=== PATIENT | female | born 1960 | race Caucasian/White ===

== ENCOUNTER → 2021-05-14 | Outpatient (REF) ==
--- NOTE | 2021-05-14 10:52 | REP ---
INDICATION: PAIN COMPARISON: None. TECHNIQUE: Internal rotation, external rotation, and Y view. FINDINGS: No acute fracture or dislocation. The acromioclavicular and glenohumeral joints are intact and age-appropriate. No periarticular calcifications or degenerative changes are appreciated. Sub acromial space is normal. Surrounding soft tissues are unremarkable. IMPRESSION: Normal age-appropriate right shoulder radiographs. <Electronically signed by Matthew Castellon > 05/14/21 [id number]
--- NOTE | 2021-05-14 10:54 | REP ---
INDICATION: PAIN COMPARISON: None. TECHNIQUE: AP, lateral, coned-down views of the lumbar spine. FINDINGS: Lateral view demonstrates mild compression deformity along the superior endplate of L2 of uncertain chronicity and should be correlated with history of trauma/injury. Remainder of the examination demonstrates mild to moderate multilevel degenerative changes include endplate sclerosis, marginal spurring and facet hypertrophy along with mild disc space narrowing. Aortoiliac stent graft noted. IMPRESSION: 1. Mild compression deformity at L2 of uncertain chronicity warrants correlation. 2. Mild/moderate multilevel degenerative changes. <Electronically signed by Matthew Castellon > 05/14/21 [id number]
== END ==
LOC: M PLAIMG 09:45
PROVIDERS: ATTEND Internal Medicine
DX: M25.511 Pain in right shoulder (principal); M54.59 Other low back pain

== ENCOUNTER 2023-12-10 09:27 | Inpatient (IN) | payer MEDICAID, OTHER ==
[2023-12-10] VITALS (35 sets, daily range): BP systolic 85–165; BP diastolic 51–86; TEMP 95.9–97.9; O2SAT 94–100
[~2023-12-10] VITALS: Ht 160 cm; Wt 47.3 kg
[2023-12-10 10:30] LABS: VENOUS O2 SATURATION 81.1 % (60.0-80.0); VENOUS PARTIAL PRESSURE CO2 39.9 mmHg (38.0-50.0); VENOUS PARTIAL PRESSURE O2 48.7 mmHg (30.0-50.0); VENOUS PH 7.378 UNITS (7.330-7.430); VENOUS STANDARD HCO3 22.5 MMOL/L; VENOUS TOTAL CO2 24.2 MMOL/L (24.0-28.0)
[2023-12-10] MEDS ORDERED: CLOP75TA2 PO (10:31)
[2023-12-10] MEDS ORDERED: MIRT1TAB PO (10:31)
[2023-12-10] MEDS ORDERED: CREO3600 (10:31)
[2023-12-10] MEDS ORDERED: METO1TAB87 PO (10:31)
[2023-12-10] MEDS ORDERED: ELIQ5TAB PO (10:31)
[2023-12-10] MEDS ORDERED: AMLO1TAB24 PO (10:31)
[2023-12-10] MEDS ORDERED: OMEP40CA5 PO (10:31)
[2023-12-10] MEDS ORDERED: MIDO5TA PO (10:31)
[2023-12-10] MEDS ORDERED: PREG50CA3 PO (10:31)
[2023-12-10] MEDS ORDERED: LEVE10003 PO (10:31)
[2023-12-10] MEDS ORDERED: POTA-151 PO (10:31)
[2023-12-10] MEDS ORDERED: HYDR-3719 PO (10:31)
[2023-12-10] MEDS: NS 1,000 ML IV SCH (10:37)
[2023-12-10 10:40] LABS: HEMATOCRIT 28.5 % (36.0-47.0); HEMOGLOBIN 9.1 g/dl (12.0-15.5); MEAN CORPUSCULAR HEMOGLOBIN 24.7 pg (27.0-33.0); MEAN CORPUSCULAR HGB CONC 31.9 g/dl (32.0-36.5); MEAN CORPUSCULAR VOLUME 77.4 fl (80.0-96.0); PLATELET COUNT, AUTOMATED 301 10^3/uL (150-450); RED BLOOD COUNT 3.68 10^6/uL (4.00-5.40); WHITE BLOOD COUNT 18.3 10^3/uL (4.0-10.0)
[2023-12-10 10:54] LABS: ETHYL ALCOHOL (ETHANOL) < 0.003 % (0.000-0.010)
[2023-12-10 10:56] LABS: ALBUMIN 1.9 G/DL (3.2-5.2); ALKALINE PHOSPHATASE 378 U/L (46-116); ALT/SGPT 42 U/L (7.0-40); AST/SGOT 34 U/L (<34); BILIRUBIN,DIRECT 0.8 MG/DL (<0.4); BILIRUBIN,TOTAL 1.4 MG/DL (0.3-1.2); BLOOD UREA NITROGEN 56 MG/DL (9-23); CALCIUM LEVEL 7.7 MG/DL (8.3-10.6); CARBON DIOXIDE LEVEL 23 MMOL/L (20-31); CHLORIDE LEVEL 100 MMOL/L (98-107); CREATININE FOR GFR 4.13 MG/DL (0.55-1.30); GLOMERULAR FILTRATION RATE 11.7 (>45); GLUCOSE, FASTING 87 MG/DL (74-106); POTASSIUM SERUM 3.1 MMOL/L (3.5-5.1); SALICYLATE LEVEL < 3.0 MG/DL (<30); SODIUM LEVEL 135 MMOL/L (136-145); TOTAL PROTEIN 6.2 G/DL (5.7-8.2)
[2023-12-10 10:59] LABS: THYROID STIMULATING HORMONE 2.032 uIU/ML (0.55-4.78)
[2023-12-10] MEDS: ACETAMINOPHEN 500 MG TAB PO ONE (11:00)
[2023-12-10 11:01] LABS: OSMOLALITY SERUM 293 MOSM/KG (280-301)
[2023-12-10 11:31] LABS: ATYPICAL LYMPH 3 % (0-5); LYMPHOCYTES 5 % (16-44); MONOCYTES 1 % (0-5); NEUTROPHILS 84 % (28-66)
[2023-12-10 11:32] LABS: HYPOCHROMASIA 1+; MICROCYTOSIS 2+
[2023-12-10 11:33] LABS: ANISOCYTOSIS 3+; SMUDGE CELLS 2+
[2023-12-10 11:33] LABS: MAGNESIUM LEVEL 2.1 MG/DL (1.8-2.4)
[2023-12-10 11:34] LABS: GIANT PLATELETS 1+
[2023-12-10 11:57] LABS: PHENCYCLIDINE URINE NEGATIVE (NEGATIVE)
[2023-12-10 11:58] LABS: AMPHETAMINES LEVEL URINE NEGATIVE (NEGATIVE); BARBITURATES URINE NEGATIVE (NEGATIVE); BENZODIAZEPINES URINE NEGATIVE (NEGATIVE); COCAINE METABOLITE URINE NEGATIVE (NEGATIVE); METHADONE URINE NEGATIVE (NEGATIVE)
[2023-12-10 11:59] LABS: CANNABINOIDS URINE POSITIVE (NEGATIVE); OPIATES URINE POSITIVE (NEGATIVE)
[2023-12-10 12:03] LABS: PLATELET ESTIMATE NORMAL (NORMAL)
[2023-12-10] MEDS: cefTRIAXone SOD 2 GM in D5W MINI-BAG PLUS 50 ML IV ONE (12:17)
[2023-12-10] MEDS ORDERED: ONDA-282 PO (12:22)
[2023-12-10] MEDS ORDERED: CREO3600 PO (12:22)
[2023-12-10] MEDS ORDERED: LOMO2.5T PO (12:22)
[2023-12-10] MEDS ORDERED: VITA1200 PO (12:22)
[2023-12-10] MEDS ORDERED: HOME MED LIST COMPLETE! XX SCH (12:25)
[2023-12-10] MEDS: NS IV ONE (12:33)
[2023-12-10] MEDS: NOREPINEPHRINE 4MG IN D5 250ML 4 MG in IV 1 EA IV SCH (13:36)
[2023-12-10] MEDS ORDERED: NOREPINEPHRINE 4MG IN D5 250ML 4 MG in IV 1 EA IV SCH (13:55)
[2023-12-10] MEDS ORDERED: VANCOMYCIN HCL 1,000 MG in IV FLUID PLACE HOLDER 1 EA IV SCH (14:00)
[2023-12-10] MEDS ORDERED: VANCOMYCIN INTERMITTENT/PULSE DOSING BY CLINICAL PHARMACIST PER DOSING PROTOCOL XX SCH (14:20)
[2023-12-10] MEDS: HYDROCORTISONE 100MG/2ML VIAL IV ONE (14:55)
[2023-12-10] MEDS: VASOPRESSIN INJ 20 UNITS in NS 499 ML IV SCH (15:00)
[2023-12-10] MEDS: VANCOMYCIN HCL 750 MG, VIAL MATE ADAPTER 1 EACH in D5W 250 ML IV ONE (15:30)
[2023-12-10] MEDS ORDERED: IPRATROPIUM 0.5MG/ALBUTEROL 2.5MG INH SOL UD 3ML (DUONEB) NEB PRN (15:50)
[2023-12-10] MEDS: LR 1,000 ML IV SCH (15:50)
[2023-12-10] MEDS: PREGABALIN 50 MG CAP (LYRICA) PO SCH (16:00)
[2023-12-10] MEDS: MIDODRINE 5 MG TAB PO SCH (16:00)
[2023-12-10] MEDS: CALCIUM GLUCONATE 1,000 MG in D5W MINI-BAG PLUS 100 ML IV ONE ×2 (17:26→18:31)
[2023-12-10] MEDS: CREON-12 CAPSULE PO SCH (17:33)
[2023-12-10] MEDS: CREON-24 CAPSULE PO SCH (17:33)
[2023-12-10] MEDS: PIPERACILLIN/TAZOBACTAM SOD 4.5 GM in D5W MINI-BAG PLUS 50 ML IV SCH (18:58)
[2023-12-10] MEDS: APIXABAN 2.5 MG TAB (ELIQUIS) PO SCH (21:00)
[2023-12-10] MEDS: levETIRAcetam 250MG TABLET (KEPPRA) PO SCH (21:00)
[2023-12-10] MEDS: ACYCLOVIR 500 MG in D5W MINI-BAG PLUS 100 ML IV SCH (22:08)
[2023-12-10] MEDS: HYDROCORTISONE 100MG/2ML VIAL IV SCH (22:08)
[2023-12-11] VITALS (44 sets, daily range): BP systolic 86–126; BP diastolic 52–67; TEMP 95.7–98.2; O2SAT 86–100
[2023-12-11 04:38] LABS: BASO % 0.2 % (0.0-1.0); HEMATOCRIT 24.7 % (36.0-47.0); HEMOGLOBIN 7.9 g/dl (12.0-15.5); LYMPH # 1.6 10^3/uL (1.5-5.0); LYMPH % 8.5 % (24.0-44.0); MEAN CORPUSCULAR HEMOGLOBIN 25.2 pg (27.0-33.0); MEAN CORPUSCULAR VOLUME 78.7 fl (80.0-96.0); MONO # 0.3 10^3/uL (0.0-0.8); MONO % 1.5 % (2.0-8.0); NEUTROPHILS # 16.8 10^3/uL (1.5-8.5); NEUTROPHILS % 88.8 % (36.0-66.0); PLATELET COUNT, AUTOMATED 256 10^3/uL (150-450); RED BLOOD COUNT 3.14 10^6/uL (4.00-5.40); WHITE BLOOD COUNT 18.9 10^3/uL (4.0-10.0)
[2023-12-11 04:52] LABS: VANCOMYCIN RANDOM 9.8 UG/ML
[2023-12-11 04:56] LABS: ALBUMIN 1.4 G/DL (3.2-5.2); ALKALINE PHOSPHATASE 319 U/L (46-116); ALT/SGPT 34 U/L (7.0-40); AST/SGOT 30 U/L (<34); BILIRUBIN,TOTAL 0.5 MG/DL (0.3-1.2); BLOOD UREA NITROGEN 57 MG/DL (9-23); CALCIUM LEVEL 7.2 MG/DL (8.3-10.6); CARBON DIOXIDE LEVEL 22 MMOL/L (20-31); CHLORIDE LEVEL 111 MMOL/L (98-107); CREATININE FOR GFR 3.56 MG/DL (0.55-1.30); GLOMERULAR FILTRATION RATE 13.9 (>45); GLUCOSE, FASTING 138 MG/DL (74-106); POTASSIUM SERUM 3.4 MMOL/L (3.5-5.1); SODIUM LEVEL 143 MMOL/L (136-145)
[2023-12-11] MEDS: KCL 10MEQ/100ML SWI (KRUN) 10 MEQ in IV 1 EA IV SCH (06:40)
[2023-12-11] MEDS: VANCOMYCIN HCL 750 MG, VIAL MATE ADAPTER 1 EACH in D5W 250 ML IV ONE (07:03)
[2023-12-11] MEDS: HEPARIN SOD (PORCINE) 5000UNITS/ML 1ML VIAL/SYRINGE SQ SCH (08:00)
[2023-12-11 09:10] LABS: MAGNESIUM LEVEL 2.3 MG/DL (1.8-2.4)
[2023-12-11] MEDS: CLOPIDOGREL 75 MG TAB PO SCH (09:12)
[2023-12-11] MEDS: levETIRAcetam INJection 500 MG in D5W MINI-BAG PLUS 100 ML IV SCH (09:13)
[2023-12-11] MEDS: MICAFUNGIN SODIUM 100 MG in D5W MINI-BAG PLUS 100 ML IV SCH (09:15)
[2023-12-11] MEDS: LR 1,000 ML IV SCH (09:31)
[2023-12-11] MEDS: APIXABAN 2.5 MG TAB (ELIQUIS) PO SCH (13:33)
[2023-12-11 18:33] LABS: CARCINOEMBRYONIC ANTIGEN < 2.0 NG/ML (<2.5)
[2023-12-11 18:48] LABS: CA19-9 TUMOR MARKER,CARBOHYDRA 11.5 U/ML (<35.0)
[2023-12-11] MEDS: levETIRAcetam 250MG TABLET (KEPPRA) PO SCH (20:18)
[2023-12-11] MEDS: HYDROCORTISONE 100MG/2ML VIAL IV SCH (20:18)
[2023-12-11] MEDS: MIRTAZAPINE 7.5MG PER 1/2 TABLET PO SCH (20:19)
[2023-12-11] MEDS: ACETAMINOPHEN 500 MG TAB PO PRN (20:27)
[2023-12-12] VITALS (20 sets, daily range): BP systolic 111–152; BP diastolic 55–97; TEMP 96.6–98.2; O2SAT 94–100
[2023-12-12 05:34] LABS: BASO % 0.1 % (0.0-1.0); HEMATOCRIT 24.7 % (36.0-47.0); LYMPH # 1.5 10^3/uL (1.5-5.0); LYMPH % 7.5 % (24.0-44.0); MEAN CORPUSCULAR HEMOGLOBIN 24.5 pg (27.0-33.0); MEAN CORPUSCULAR HGB CONC 32.4 g/dl (32.0-36.5); MEAN CORPUSCULAR VOLUME 75.5 fl (80.0-96.0); MONO # 0.5 10^3/uL (0.0-0.8); MONO % 2.6 % (2.0-8.0); NEUTROPHILS # 17.3 10^3/uL (1.5-8.5); NEUTROPHILS % 88.9 % (36.0-66.0); PLATELET COUNT, AUTOMATED 353 10^3/uL (150-450); RED BLOOD COUNT 3.27 10^6/uL (4.00-5.40); WHITE BLOOD COUNT 19.4 10^3/uL (4.0-10.0)
[2023-12-12 05:57] LABS: ALBUMIN 1.4 G/DL (3.2-5.2); BILIRUBIN,TOTAL 0.4 MG/DL (0.3-1.2); CALCIUM LEVEL 7.1 MG/DL (8.3-10.6); CREATININE FOR GFR 2.69 MG/DL (0.55-1.30); GLOMERULAR FILTRATION RATE 19.2 (>45); MAGNESIUM LEVEL 2.3 MG/DL (1.8-2.4); PHOSPHORUS LEVEL 6.1 MG/DL (2.4-5.1); POTASSIUM SERUM 3.2 MMOL/L (3.5-5.1)
[2023-12-12] MEDS: POTASSIUM CHLORIDE 10MEQ SR TABLET PO ONE ×3 (06:33→21:00)
[2023-12-12] MEDS: KCL 10MEQ/100ML SWI (KRUN) 10 MEQ in IV 1 EA IV SCH (06:33)
[2023-12-12] MEDS ORDERED: POTASSIUM CHLORIDE 10MEQ SR TABLET PO SCH (09:00)
[2023-12-12] MEDS ORDERED: KCL 10MEQ/100ML SWI (KRUN) 10 MEQ in IV 1 EA IV SCH (10:00)
[2023-12-12] MEDS: PERCOCET 5MG/325MG TAB PO PRN (12:22)
[2023-12-12 13:46] LABS: ALBUMIN 1.4 G/DL (3.2-5.2); BILIRUBIN,TOTAL 0.4 MG/DL (0.3-1.2); CALCIUM LEVEL 7.2 MG/DL (8.3-10.6); CREATININE FOR GFR 2.62 MG/DL (0.55-1.30); GLOMERULAR FILTRATION RATE 19.7 (>45); POTASSIUM SERUM 3.1 MMOL/L (3.5-5.1); TOTAL PROTEIN 4.9 G/DL (5.7-8.2)
[2023-12-12] MEDS ORDERED: KCL 40MEQ IN D5/NS 1000ML 1,000 ML IV SCH ×2 (14:10→16:00)
[2023-12-12] MEDS: AMINO AC/ELECTROLYTE/DEX/CALC 1,000 ML IV SCH (15:13)
[2023-12-12] MEDS ORDERED: AMINO AC/ELECTROLYTE/DEX/CALC 1,000 ML IV SCH (18:00)
[2023-12-12] MEDS: FAT EMULSION IV 250 ML IV ONE (18:20)
[2023-12-13] VITALS: BP 139/65; TEMP 97; O2SAT 97
[2023-12-13 00:57] LABS: CALCIUM LEVEL 7.1 MG/DL (8.3-10.6); CREATININE FOR GFR 2.82 MG/DL (0.55-1.30); GLOMERULAR FILTRATION RATE 18.1 (>45); POTASSIUM SERUM 3.5 MMOL/L (3.5-5.1)
[2023-12-13 04:00] VITALS: BP 115/57; TEMP 98.4; O2SAT 96
[2023-12-13 05:17] LABS: BASO % 0.3 % (0.0-1.0); EOS # 0.1 10^3/uL (0.0-0.5); EOS % 0.4 % (0.0-3.0); HEMATOCRIT 25.8 % (36.0-47.0); LYMPH # 1.4 10^3/uL (1.5-5.0); LYMPH % 11.7 % (24.0-44.0); MEAN CORPUSCULAR HEMOGLOBIN 24.8 pg (27.0-33.0); MEAN CORPUSCULAR VOLUME 80.1 fl (80.0-96.0); MONO # 0.5 10^3/uL (0.0-0.8); MONO % 4.3 % (2.0-8.0); NEUTROPHILS # 9.6 10^3/uL (1.5-8.5); NEUTROPHILS % 82.1 % (36.0-66.0); PLATELET COUNT, AUTOMATED 290 10^3/uL (150-450); RED BLOOD COUNT 3.22 10^6/uL (4.00-5.40); WHITE BLOOD COUNT 11.7 10^3/uL (4.0-10.0)
[2023-12-13 05:47] LABS: ALBUMIN 1.6 G/DL (3.2-5.2); BILIRUBIN,TOTAL 0.4 MG/DL (0.3-1.2); CALCIUM LEVEL 7.3 MG/DL (8.3-10.6); CREATININE FOR GFR 2.9 MG/DL (0.55-1.30); GLOMERULAR FILTRATION RATE 17.6 (>45); MAGNESIUM LEVEL 2.4 MG/DL (1.8-2.4); POTASSIUM SERUM 3.6 MMOL/L (3.5-5.1); TOTAL PROTEIN 5.1 G/DL (5.7-8.2)
[2023-12-13 08:00] VITALS: BP 132/72; TEMP 99.6; O2SAT 95
[2023-12-13 12:00] VITALS: BP 115/60; TEMP 99; O2SAT 93
[2023-12-13] MEDS: INSULIN LISPRO (NovoLOG) PER UNIT SC SCH (17:50)
[2023-12-13] MEDS: FAT EMULSION IV 250 ML IV ONE (18:20)
[2023-12-13 19:41] VITALS: BP 140/66; TEMP 101.4; O2SAT 94
[2023-12-14] VITALS (11 sets, daily range): BP systolic 115–164; BP diastolic 56–76; TEMP 97.2–98.7; O2SAT 96–99
[2023-12-14 05:57] LABS: BASO # 0.1 10^3/uL (0.0-0.2); BASO % 0.4 % (0.0-1.0); EOS # 0.1 10^3/uL (0.0-0.5); EOS % 0.5 % (0.0-3.0); HEMATOCRIT 23.6 % (36.0-47.0); HEMOGLOBIN 7.4 g/dl (12.0-15.5); LYMPH # 1.4 10^3/uL (1.5-5.0); LYMPH % 10.3 % (24.0-44.0); MEAN CORPUSCULAR HEMOGLOBIN 24.9 pg (27.0-33.0); MEAN CORPUSCULAR HGB CONC 31.4 g/dl (32.0-36.5); MEAN CORPUSCULAR VOLUME 79.5 fl (80.0-96.0); MONO # 0.5 10^3/uL (0.0-0.8); MONO % 3.6 % (2.0-8.0); NEUTROPHILS # 11.6 10^3/uL (1.5-8.5); NEUTROPHILS % 83.8 % (36.0-66.0); PLATELET COUNT, AUTOMATED 359 10^3/uL (150-450); RED BLOOD COUNT 2.97 10^6/uL (4.00-5.40); WHITE BLOOD COUNT 13.9 10^3/uL (4.0-10.0)
[2023-12-14 06:28] LABS: ALBUMIN 1.6 G/DL (3.2-5.2); BILIRUBIN,TOTAL 0.5 MG/DL (0.3-1.2); CALCIUM LEVEL 7.5 MG/DL (8.3-10.6); CREATININE FOR GFR 2.75 MG/DL (0.55-1.30); GLOMERULAR FILTRATION RATE 18.7 (>45); MAGNESIUM LEVEL 2.2 MG/DL (1.8-2.4); POTASSIUM SERUM 3.5 MMOL/L (3.5-5.1); TOTAL PROTEIN 5.1 G/DL (5.7-8.2)
[2023-12-14 11:08] LABS: ABG BASE EXCESS -4.1 (-2.0-2.0); ABG HCO3 18.8 MMOL/L (22.0-26.0); ABG O2 SATURATION 95.7 % (95.0-99.0); ABG PARTIAL PRESSURE CO2 26.3 mmHg (35.0-45.0); ABG PARTIAL PRESSURE O2 84.1 mmHg (75.0-100.0); ABG TOTAL CO2 19.6 MMOL/L (23.0-31.0); ABG pH (ARTERIAL) 7.472 UNITS (7.350-7.450)
[2023-12-14 11:24] LABS: FERRITIN 63.9 NG/ML (7.3-270.7)
[2023-12-14 11:29] LABS: PERCENT SATURATION 3.5 % (13.2-45.0)
[2023-12-14 11:32] LABS: FOLATE 18.45 NG/ML (>5.4)
[2023-12-14] MEDS: KCL 10MEQ/100ML SWI (KRUN) 10 MEQ in IV 1 EA IV SCH (11:36)
[2023-12-14 12:07] LABS: CA19-9 TUMOR MARKER,CARBOHYDRA 10.9 U/ML (<35.0)
[2023-12-14] MEDS ORDERED: cefTRIAXone SOD 2GM VIAL IM SCH (12:45)
[2023-12-14] MEDS: SODIUM BICARBONATE 325 MG TAB PO SCH (15:14)
[2023-12-14] MEDS: POTASSIUM CHLORIDE 10MEQ SR TABLET PO SCH (15:15)
[2023-12-14] MEDS: cefTRIAXone SOD 2 GM in D5W MINI-BAG PLUS 50 ML IV SCH (15:15)
[2023-12-14] MEDS ORDERED: PROHANCE 279.3MG/ML 15ML VIAL As Ordered ONE (17:29)
[2023-12-14] MEDS: INSULIN LISPRO (NovoLOG) PER UNIT SC SCH (18:00)
[2023-12-14] MEDS: FAT EMULSION IV 250 ML IV ONE (18:39)
[2023-12-15] VITALS (7 sets, daily range): BP systolic 124–153; BP diastolic 67–80; TEMP 97.8–101.7; O2SAT 95–98
[2023-12-15 06:03] LABS: BASO # 0.1 10^3/uL (0.0-0.2); BASO % 0.4 % (0.0-1.0); EOS # 0.1 10^3/uL (0.0-0.5); EOS % 0.7 % (0.0-3.0); HEMATOCRIT 28.5 % (36.0-47.0); HEMOGLOBIN 9.1 g/dl (12.0-15.5); LYMPH # 1.4 10^3/uL (1.5-5.0); LYMPH % 10.6 % (24.0-44.0); MEAN CORPUSCULAR HEMOGLOBIN 25.6 pg (27.0-33.0); MEAN CORPUSCULAR HGB CONC 31.9 g/dl (32.0-36.5); MEAN CORPUSCULAR VOLUME 80.1 fl (80.0-96.0); MONO # 0.5 10^3/uL (0.0-0.8); MONO % 4.1 % (2.0-8.0); NEUTROPHILS # 10.6 10^3/uL (1.5-8.5); NEUTROPHILS % 83.3 % (36.0-66.0); PLATELET COUNT, AUTOMATED 395 10^3/uL (150-450); RED BLOOD COUNT 3.56 10^6/uL (4.00-5.40); WHITE BLOOD COUNT 12.8 10^3/uL (4.0-10.0)
[2023-12-15 06:41] LABS: ALBUMIN 1.8 G/DL (3.2-5.2); BILIRUBIN,TOTAL 0.5 MG/DL (0.3-1.2); CALCIUM LEVEL 7.7 MG/DL (8.3-10.6); CREATININE FOR GFR 2.32 MG/DL (0.55-1.30); GLOMERULAR FILTRATION RATE 22.7 (>45); POTASSIUM SERUM 3.5 MMOL/L (3.5-5.1); TOTAL PROTEIN 5.5 G/DL (5.7-8.2)
[2023-12-15 11:49] LABS: PREALBUMIN 9.3 MG/DL (10.0-40.0)
[2023-12-15 11:50] LABS: PHOSPHORUS LEVEL 5.5 MG/DL (2.4-5.1)
[2023-12-15] MEDS: FAT EMULSION IV 250 ML IV ONE (18:41)
[2023-12-16 03:27] VITALS: BP 124/63; TEMP 97.2; O2SAT 97
[2023-12-16 08:04] VITALS: BP 138/77; TEMP 96.8; O2SAT 98
[2023-12-16 08:22] LABS: BASO # 0.1 10^3/uL (0.0-0.2); BASO % 0.5 % (0.0-1.0); EOS # 0.2 10^3/uL (0.0-0.5); HEMATOCRIT 32.9 % (36.0-47.0); HEMOGLOBIN 10.2 g/dl (12.0-15.5); LYMPH # 2.1 10^3/uL (1.5-5.0); LYMPH % 13.5 % (24.0-44.0); MEAN CORPUSCULAR HEMOGLOBIN 25.7 pg (27.0-33.0); MEAN CORPUSCULAR VOLUME 82.9 fl (80.0-96.0); MONO # 0.5 10^3/uL (0.0-0.8); MONO % 3.5 % (2.0-8.0); NEUTROPHILS # 12.2 10^3/uL (1.5-8.5); NEUTROPHILS % 80.6 % (36.0-66.0); PLATELET COUNT, AUTOMATED 451 10^3/uL (150-450); RED BLOOD COUNT 3.97 10^6/uL (4.00-5.40); WHITE BLOOD COUNT 15.2 10^3/uL (4.0-10.0)
[2023-12-16 08:38] LABS: C REACTIVE PROTEIN QUANTITATIV 12.3 MG/DL (<1.0); ERYTHROCYTE SEDIMENTATION RATE 103 mm/hr (0-30)
[2023-12-16 08:39] LABS: CALCIUM LEVEL 7.9 MG/DL (8.3-10.6); CREATININE FOR GFR 1.81 MG/DL (0.55-1.30); GLOMERULAR FILTRATION RATE 30.3 (>45); POTASSIUM SERUM 4.1 MMOL/L (3.5-5.1)
[2023-12-16 08:46] LABS: PROCALCITONIN 20.27 ng/ml
[2023-12-16 12:08] VITALS: BP 145/78
[2023-12-16 12:43] VITALS: TEMP 98.1; O2SAT 98
[2023-12-16 16:15] VITALS: BP 120/74; TEMP 97; O2SAT 96
[2023-12-16] MEDS: FAT EMULSION IV 250 ML IV ONE (17:08)
[2023-12-16] MEDS: INSULIN LISPRO (NovoLOG) PER UNIT SC SCH (17:18)
[2023-12-16 19:59] VITALS: BP 133/78; TEMP 97.4; O2SAT 98
[2023-12-17] VITALS (7 sets, daily range): BP systolic 110–140; BP diastolic 71–83; TEMP 97.4–98.5; O2SAT 95–98
[2023-12-17 06:26] LABS: BASO # 0.1 10^3/uL (0.0-0.2); BASO % 0.7 % (0.0-1.0); EOS # 0.3 10^3/uL (0.0-0.5); EOS % 1.8 % (0.0-3.0); HEMOGLOBIN 9.6 g/dl (12.0-15.5); LYMPH # 1.7 10^3/uL (1.5-5.0); LYMPH % 11.4 % (24.0-44.0); MEAN CORPUSCULAR HEMOGLOBIN 25.3 pg (27.0-33.0); MEAN CORPUSCULAR VOLUME 81.8 fl (80.0-96.0); MONO # 0.9 10^3/uL (0.0-0.8); NEUTROPHILS # 11.9 10^3/uL (1.5-8.5); PLATELET COUNT, AUTOMATED 497 10^3/uL (150-450); RED BLOOD COUNT 3.79 10^6/uL (4.00-5.40); WHITE BLOOD COUNT 15.1 10^3/uL (4.0-10.0)
[2023-12-17 07:00] LABS: CALCIUM LEVEL 8.4 MG/DL (8.3-10.6); CREATININE FOR GFR 1.58 MG/DL (0.55-1.30); GLOMERULAR FILTRATION RATE 35.4 (>45); POTASSIUM SERUM 4.1 MMOL/L (3.5-5.1)
[2023-12-17] MEDS: FAT EMULSION IV 250 ML IV ONE (17:27)
[2023-12-17] MEDS: INSULIN LISPRO (NovoLOG) PER UNIT SC SCH (17:40)
[2023-12-18 04:05] VITALS: BP 104/67; TEMP 96.4; O2SAT 93
[2023-12-18 06:33] LABS: BASO # 0.1 10^3/uL (0.0-0.2); BASO % 0.8 % (0.0-1.0); EOS # 0.3 10^3/uL (0.0-0.5); HEMATOCRIT 33.3 % (36.0-47.0); LYMPH # 1.9 10^3/uL (1.5-5.0); LYMPH % 14.6 % (24.0-44.0); MEAN CORPUSCULAR HEMOGLOBIN 25.4 pg (27.0-33.0); MEAN CORPUSCULAR VOLUME 84.5 fl (80.0-96.0); MONO # 0.9 10^3/uL (0.0-0.8); NEUTROPHILS # 9.7 10^3/uL (1.5-8.5); NEUTROPHILS % 74.7 % (36.0-66.0); PLATELET COUNT, AUTOMATED 521 10^3/uL (150-450); RED BLOOD COUNT 3.94 10^6/uL (4.00-5.40)
[2023-12-18 06:59] LABS: CALCIUM LEVEL 8.4 MG/DL (8.3-10.6); CREATININE FOR GFR 1.52 MG/DL (0.55-1.30); POTASSIUM SERUM 4.7 MMOL/L (3.5-5.1)
[2023-12-18 08:02] VITALS: BP 92/54; TEMP 98; O2SAT 96
[2023-12-18 12:02] VITALS: BP 140/69; TEMP 97.4; O2SAT 97
[2023-12-18 16:13] VITALS: BP 126/80; TEMP 97.1; O2SAT 99
[2023-12-18] MEDS: FAT EMULSION IV 250 ML IV ONE (18:36)
[2023-12-18 19:48] VITALS: BP 124/71; TEMP 97.5; O2SAT 100
[2023-12-18 23:34] VITALS: BP 113/66; TEMP 98.2; O2SAT 97
[2023-12-19 03:44] VITALS: BP 117/66; TEMP 97.9; O2SAT 98
[2023-12-19 06:58] LABS: BASO # 0.2 10^3/uL (0.0-0.2); BASO % 1.1 % (0.0-1.0); EOS # 0.2 10^3/uL (0.0-0.5); EOS % 1.8 % (0.0-3.0); HEMATOCRIT 32.1 % (36.0-47.0); HEMOGLOBIN 9.8 g/dl (12.0-15.5); LYMPH # 1.9 10^3/uL (1.5-5.0); LYMPH % 14.1 % (24.0-44.0); MEAN CORPUSCULAR HEMOGLOBIN 25.6 pg (27.0-33.0); MEAN CORPUSCULAR HGB CONC 30.5 g/dl (32.0-36.5); MEAN CORPUSCULAR VOLUME 83.8 fl (80.0-96.0); MONO # 0.9 10^3/uL (0.0-0.8); MONO % 6.6 % (2.0-8.0); NEUTROPHILS # 10.1 10^3/uL (1.5-8.5); NEUTROPHILS % 75.5 % (36.0-66.0); PLATELET COUNT, AUTOMATED 527 10^3/uL (150-450); RED BLOOD COUNT 3.83 10^6/uL (4.00-5.40); WHITE BLOOD COUNT 13.4 10^3/uL (4.0-10.0)
[2023-12-19 07:22] LABS: CALCIUM LEVEL 8.7 MG/DL (8.3-10.6); CREATININE FOR GFR 1.38 MG/DL (0.55-1.30); GLOMERULAR FILTRATION RATE 41.4 (>45)
[2023-12-19 08:00] VITALS: BP 116/76; TEMP 97.4; O2SAT 98
[2023-12-19 12:00] VITALS: BP 137/78; TEMP 98.3; O2SAT 100
[2023-12-19 12:36] LABS: ABG BASE EXCESS -12.5 (-2.0-2.0); ABG HCO3 11.7 MMOL/L (22.0-26.0); ABG O2 SATURATION 97.7 % (95.0-99.0); ABG PARTIAL PRESSURE CO2 22.6 mmHg (35.0-45.0); ABG PARTIAL PRESSURE O2 103.4 mmHg (75.0-100.0); ABG STANDARD HCO3 14.6 MMOL/L. (22.0-26.0); ABG TOTAL CO2 12.4 MMOL/L (23.0-31.0); ABG pH (ARTERIAL) 7.331 UNITS (7.350-7.450)
[2023-12-19 16:00] VITALS: BP 132/68; TEMP 98.8; O2SAT 96
[2023-12-19] MEDS: FAT EMULSION IV 250 ML IV ONE (17:44)
[2023-12-19 19:54] VITALS: BP 123/72; TEMP 97.5; O2SAT 96
[2023-12-19] MEDS: APIXABAN 5 MG TAB (ELIQUIS) PO SCH (20:30)
[2023-12-19] MEDS ORDERED: NORCO, ANEXSIA 5/325MG TABLET (HYDROcodone/ACETAMINOPHEN) PO PRN ×2 (22:25)
[2023-12-20 00:08] VITALS: BP 144/75; TEMP 99; O2SAT 97
[2023-12-20 03:48] VITALS: BP 125/82; TEMP 98.3; O2SAT 96
[2023-12-20 05:52] LABS: BASO # 0.2 10^3/uL (0.0-0.2); BASO % 1.5 % (0.0-1.0); EOS # 0.2 10^3/uL (0.0-0.5); EOS % 1.4 % (0.0-3.0); HEMATOCRIT 33.5 % (36.0-47.0); HEMOGLOBIN 10.3 g/dl (12.0-15.5); MEAN CORPUSCULAR HEMOGLOBIN 25.5 pg (27.0-33.0); MEAN CORPUSCULAR HGB CONC 30.7 g/dl (32.0-36.5); MEAN CORPUSCULAR VOLUME 82.9 fl (80.0-96.0); MONO # 0.8 10^3/uL (0.0-0.8); MONO % 6.6 % (2.0-8.0); NEUTROPHILS # 9.2 10^3/uL (1.5-8.5); NEUTROPHILS % 73.7 % (36.0-66.0); PLATELET COUNT, AUTOMATED 582 10^3/uL (150-450); RED BLOOD COUNT 4.04 10^6/uL (4.00-5.40); WHITE BLOOD COUNT 12.5 10^3/uL (4.0-10.0)
[2023-12-20 06:22] LABS: BLOOD UREA NITROGEN 27 MG/DL (9-23); CALCIUM LEVEL 9.2 MG/DL (8.3-10.6); CARBON DIOXIDE LEVEL < 10.0 MMOL/L (20-31); CHLORIDE LEVEL 116 MMOL/L (98-107); CREATININE FOR GFR 1.38 MG/DL (0.55-1.30); GLOMERULAR FILTRATION RATE 41.4 (>45); GLUCOSE, FASTING 99 MG/DL (74-106); POTASSIUM SERUM 5.5 MMOL/L (3.5-5.1); SODIUM LEVEL 138 MMOL/L (136-145)
[2023-12-20 08:41] VITALS: BP 119/81; TEMP 98.3; O2SAT 99
[2023-12-20] MEDS ORDERED: ACET-683 PO (09:27)
[2023-12-20] MEDS ORDERED: HYDR-3715 PO (09:27)
[2023-12-20] MEDS ORDERED: KEPP250T5 PO (09:27)
[2023-12-20] MEDS ORDERED: CLOP75TA2 PO (09:27)
[2023-12-20] MEDS: CALCIUM GLUCONATE 1,000 MG in D5W MINI-BAG PLUS 100 ML IV ONE (09:35)
[2023-12-20] MEDS ORDERED: PATIROMER SORBITEX CALCIUM 8.4 GM POWDER PACKET (VELTASSA) PO ONE (11:00)
[2023-12-20] MEDS ORDERED: SODIUM BICARBONATE 150 MEQ in STERILE WATER LITER BAG 1,000 ML IV SCH (14:00)
[2023-12-20] MEDS ORDERED: SODIUM BICARBONATE 325 MG TAB PO SCH (16:00)
[2023-12-20] MEDS ORDERED: INSULIN LISPRO (NovoLOG) PER UNIT SC SCH (18:00)
[2023-12-20] MEDS ORDERED: FAT EMULSION IV 250 ML IV ONE (18:00)
== END 2023-12-20 11:27 | disposition short-term general hospital (02) | DRG 721 ==
LOC: M ED 09:27 → M ED INP 13:53 → M ICU 15:23 → M PCU 12-13 15:31
PROVIDERS: ADMIT Internal Medicine Pulmonary Disease; ATTEND Internal Medicine Pulmonary Disease
PROC: 30233N1 Transfusion of Nonautologous Red Blood Cells into Peripheral Vein, Percutaneous Approach (ICD-10-PCS; principal; 2023-12-14)
DX: T80.211A Bloodstream infection due to central venous catheter, initial encounter (principal); E43 Unspecified severe protein-calorie malnutrition; G93.41 Metabolic encephalopathy; R65.21 Severe sepsis with septic shock; J18.9 Pneumonia, unspecified organism; K91.2 Postsurgical malabsorption, not elsewhere classified; N17.9 Acute kidney failure, unspecified; A41.50 Gram-negative sepsis, unspecified; E87.0 Hyperosmolality and hypernatremia; E87.1 Hypo-osmolality and hyponatremia; E87.20 Acidosis, unspecified; R17 Unspecified jaundice; Z87.891 Personal history of nicotine dependence; F12.90 Cannabis use, unspecified, uncomplicated; E87.6 Hypokalemia; K31.89 Other diseases of stomach and duodenum; Z79.899 Other long term (current) drug therapy; Z88.2 Allergy status to sulfonamides; N39.0 Urinary tract infection, site not specified; G40.909 Epilepsy, unspecified, not intractable, without status epilepticus; I95.89 Other hypotension; I25.10 Atherosclerotic heart disease of native coronary artery without angina pectoris; K90.829 Short bowel syndrome, unspecified; Z68.21 Body mass index [BMI] 21.0-21.9, adult; K86.9 Disease of pancreas, unspecified; I27.20 Pulmonary hypertension, unspecified; I08.1 Rheumatic disorders of both mitral and tricuspid valves; D64.9 Anemia, unspecified; Y84.8 Other medical procedures as the cause of abnormal reaction of the patient, or of later complication, without mention of misadventure at the time of the procedure

== ENCOUNTER 2023-12-24 14:29 | Inpatient (IN) | payer OTHER ==
[~2023-12-24] VITALS: Ht 160 cm; Wt 49.1 kg
[~2023-12-24 14:29] MED LIST: ACET-683 PO; AMLO1TAB24 PO; CLOP75TA2 PO; CREO3600; CREO3600 PO; ELIQ5TAB PO; HYDR-3715 PO; HYDR-3719 PO; KEPP250T5 PO; LEVE10003 PO; LOMO2.5T PO; METO1TAB87 PO; MIDO5TA PO; MIRT1TAB PO; OMEP40CA5 PO; ONDA4TAB6 PO; POTA-151 PO; PREG50CA3 PO; VITA1200 PO
[2023-12-24 20:49] VITALS: BP 110/57; TEMP 100.4; O2SAT 98
[2023-12-24] MEDS ORDERED: METAMUCIL (PSYLLIUM) PACKET PO PRN (20:55)
[2023-12-24 23:17] VITALS: BP 105/67; TEMP 97.7; O2SAT 95
[2023-12-24] MEDS: cefTRIAXone SOD 2 GM in D5W MINI-BAG PLUS 50 ML IV SCH (23:33)
[2023-12-24] MEDS ORDERED: CREO24CA PO (23:47)
[2023-12-24] MEDS ORDERED: METO25TA4 PO (23:47)
[2023-12-24] MEDS ORDERED: VITA100093 PO (23:47)
[2023-12-24] MEDS ORDERED: MAGN400T2 PO (23:47)
[2023-12-24] MEDS ORDERED: DEBR6.5S4 AU (23:47)
[2023-12-24] MEDS ORDERED: KEPP1TAB2 PO (23:47)
[2023-12-24] MEDS: oxyCODONE 5MG TAB PO PRN (23:48)
[2023-12-24] MEDS ORDERED: SODI650T PO (23:51)
[2023-12-24] MEDS ORDERED: OXYC10TA12 PO (23:51)
[2023-12-24] MEDS ORDERED: PREG50CA PO (23:51)
[2023-12-24] MEDS ORDERED: HOME MED LIST COMPLETE! XX SCH (23:55)
[2023-12-25] MEDS ORDERED: PILL CUTTER 1 EACH XX PRN (00:50)
[2023-12-25] MEDS: MICAFUNGIN SODIUM 100 MG in D5W MINI-BAG PLUS 100 ML IV SCH (00:51)
[2023-12-25] MEDS: METOPROLOL TART 12.5 MG PER 1/2 TAB PO SCH (01:03)
[2023-12-25] MEDS: APIXABAN 5 MG TAB (ELIQUIS) PO SCH (01:04)
[2023-12-25] MEDS: MAGNESIUM OXIDE 400MG TAB (MAG-OX) PO SCH (01:04)
[2023-12-25] MEDS: levETIRAcetam 250MG TABLET (KEPPRA) PO SCH (01:04)
[2023-12-25] MEDS: OMEPRAZOLE 20MG CAP PO SCH (01:04)
[2023-12-25] MEDS: PREGABALIN 50 MG CAP (LYRICA) PO SCH (01:04)
[2023-12-25] MEDS: MIRTAZAPINE 7.5MG PER 1/2 TABLET PO SCH (01:28)
[2023-12-25] MEDS: SODIUM BICARBONATE 325 MG TAB PO SCH (01:28)
[2023-12-25 03:29] VITALS: BP 100/62; TEMP 97.6; O2SAT 94
[2023-12-25 05:51] LABS: HEMATOCRIT 27.1 % (36.0-47.0); HEMOGLOBIN 8.2 g/dl (12.0-15.5); MEAN CORPUSCULAR HEMOGLOBIN 25.7 pg (27.0-33.0); MEAN CORPUSCULAR HGB CONC 30.3 g/dl (32.0-36.5); PLATELET COUNT, AUTOMATED 364 10^3/uL (150-450); RED BLOOD COUNT 3.19 10^6/uL (4.00-5.40); WHITE BLOOD COUNT 8.3 10^3/uL (4.0-10.0)
[2023-12-25 06:24] LABS: ALBUMIN 2.1 G/DL (3.2-5.2); BILIRUBIN,TOTAL 0.3 MG/DL (0.3-1.2); CALCIUM LEVEL 8.6 MG/DL (8.3-10.6); CREATININE FOR GFR 1.29 MG/DL (0.55-1.30); GLOMERULAR FILTRATION RATE 44.7 (>45); MAGNESIUM LEVEL 1.2 MG/DL (1.8-2.4); POTASSIUM SERUM 3.7 MMOL/L (3.5-5.1); TOTAL PROTEIN 6.1 G/DL (5.7-8.2)
[2023-12-25] MEDS: MAG SULF 1GM/100ML (MAG RUN) 1 GM in IV 1 EA IV SCH (07:02)
[2023-12-25 07:34] VITALS: BP 110/58; TEMP 96.8; O2SAT 94
[2023-12-25] MEDS: CREON-24 CAPSULE PO SCH (08:27)
[2023-12-25] MEDS: LACTOBACILLUS ACIDOPHILUS CAP (BACID) PO SCH (08:27)
[2023-12-25] MEDS: VITAMIN D 1,000 INTERNATIONAL UNITS TABLET PO SCH (08:27)
[2023-12-25] MEDS: CLOPIDOGREL 75 MG TAB PO SCH (08:28)
[2023-12-25] MEDS: CARBAMIDE PEROXIDE 6.5% OTIC SOLN 15ML AU SCH (08:28)
[2023-12-25 09:26] LABS: C REACTIVE PROTEIN QUANTITATIV 5.5 MG/DL (<1.0)
[2023-12-25 09:27] LABS: PHOSPHORUS LEVEL 4.2 MG/DL (2.4-5.1)
[2023-12-25 12:00] VITALS: BP 109/59; TEMP 97; O2SAT 96
[2023-12-25] MEDS: LIDOCAINE 5% (LIDODERM) PATCH TD SCH (15:19)
[2023-12-25 16:47] VITALS: BP 108/69; TEMP 97.7; O2SAT 98
[2023-12-25] MEDS: MULTIVITAMIN -ADULT INJECTION 10 ML, ZINC/COPPER/MANGANESE/SELENIUM 1 ML in AMINO AC/EL... IV SCH (17:26)
[2023-12-25] MEDS: FAT EMULSION IV 250 ML IV ONE (17:26)
[2023-12-25 20:25] VITALS: BP 104/64; TEMP 98.6; O2SAT 96
[2023-12-26 05:52] LABS: BASO # 0.2 10^3/uL (0.0-0.2); BASO % 2.3 % (0.0-1.0); EOS # 0.3 10^3/uL (0.0-0.5); EOS % 3.6 % (0.0-3.0); HEMATOCRIT 27.3 % (36.0-47.0); HEMOGLOBIN 8.2 g/dl (12.0-15.5); LYMPH # 1.9 10^3/uL (1.5-5.0); LYMPH % 22.6 % (24.0-44.0); MEAN CORPUSCULAR HEMOGLOBIN 25.7 pg (27.0-33.0); MEAN CORPUSCULAR VOLUME 85.6 fl (80.0-96.0); MONO # 0.5 10^3/uL (0.0-0.8); MONO % 6.4 % (2.0-8.0); NEUTROPHILS # 5.4 10^3/uL (1.5-8.5); NEUTROPHILS % 64.9 % (36.0-66.0); PLATELET COUNT, AUTOMATED 340 10^3/uL (150-450); RED BLOOD COUNT 3.19 10^6/uL (4.00-5.40); WHITE BLOOD COUNT 8.4 10^3/uL (4.0-10.0)
[2023-12-26] MEDS: SODIUM CHLORIDE 0.9% INJ 10 ML SYR IV SCH (05:53)
[2023-12-26 05:54] VITALS: BP 95/62; TEMP 97.7; O2SAT 97
[2023-12-26 06:26] LABS: ALBUMIN 2.1 G/DL (3.2-5.2); ALKALINE PHOSPHATASE 198 U/L (46-116); ALT/SGPT 45 U/L (7.0-40); AST/SGOT 17 U/L (<34); BILIRUBIN,TOTAL < 0.2 MG/DL (0.3-1.2); BLOOD UREA NITROGEN 15 MG/DL (9-23); CALCIUM LEVEL 8.6 MG/DL (8.3-10.6); CARBON DIOXIDE LEVEL 17 MMOL/L (20-31); CHLORIDE LEVEL 106 MMOL/L (98-107); CREATININE FOR GFR 1.29 MG/DL (0.55-1.30); GLOMERULAR FILTRATION RATE 44.7 (>45); GLUCOSE, FASTING 134 MG/DL (74-106); MAGNESIUM LEVEL 1.9 MG/DL (1.8-2.4); PHOSPHORUS LEVEL 5.1 MG/DL (2.4-5.1); POTASSIUM SERUM 4.3 MMOL/L (3.5-5.1); SODIUM LEVEL 134 MMOL/L (136-145); TOTAL PROTEIN 6.3 G/DL (5.7-8.2)
[2023-12-26] MEDS: SODIUM BICARBONATE 325 MG TAB PO SCH (08:04)
[2023-12-26 13:50] VITALS: BP 89/55; TEMP 97.8; O2SAT 98
[2023-12-26 16:37] VITALS: BP 110/68
[2023-12-26] MEDS: FAT EMULSION IV 250 ML IV ONE (17:27)
[2023-12-26] MEDS: AMINO AC/ELECTROLYTE/DEX/CALC 1,000 ML IV SCH (17:27)
[2023-12-26 20:44] VITALS: BP 103/64; TEMP 97.3; O2SAT 98
[2023-12-27] MEDS: SODIUM CHLORIDE 0.9% INJ 10 ML SYR IV PRN (02:25)
[2023-12-27 06:00] VITALS: BP 110/69; TEMP 97.5; O2SAT 96
[2023-12-27 11:35] LABS: BASO # 0.2 10^3/uL (0.0-0.2); BASO % 2.5 % (0.0-1.0); EOS # 0.2 10^3/uL (0.0-0.5); EOS % 3.2 % (0.0-3.0); HEMATOCRIT 28.2 % (36.0-47.0); HEMOGLOBIN 8.5 g/dl (12.0-15.5); LYMPH # 1.4 10^3/uL (1.5-5.0); LYMPH % 18.8 % (24.0-44.0); MEAN CORPUSCULAR HEMOGLOBIN 25.4 pg (27.0-33.0); MEAN CORPUSCULAR HGB CONC 30.1 g/dl (32.0-36.5); MEAN CORPUSCULAR VOLUME 84.2 fl (80.0-96.0); MONO # 0.4 10^3/uL (0.0-0.8); MONO % 5.7 % (2.0-8.0); NEUTROPHILS % 69.5 % (36.0-66.0); PLATELET COUNT, AUTOMATED 370 10^3/uL (150-450); RED BLOOD COUNT 3.35 10^6/uL (4.00-5.40); WHITE BLOOD COUNT 7.2 10^3/uL (4.0-10.0)
[2023-12-27 11:39] LABS: C REACTIVE PROTEIN QUANTITATIV 3.5 MG/DL (<1.0)
[2023-12-27 11:41] LABS: ALBUMIN 2.2 G/DL (3.2-5.2); BILIRUBIN,TOTAL 0.2 MG/DL (0.3-1.2); CALCIUM LEVEL 8.4 MG/DL (8.3-10.6); CREATININE FOR GFR 1.32 MG/DL (0.55-1.30); GLOMERULAR FILTRATION RATE 43.6 (>45); MAGNESIUM LEVEL 1.6 MG/DL (1.8-2.4); PHOSPHORUS LEVEL 4.2 MG/DL (2.4-5.1); TOTAL PROTEIN 6.5 G/DL (5.7-8.2)
[2023-12-27 14:00] VITALS: BP 105/68; TEMP 97.5; O2SAT 98
[2023-12-27 20:34] VITALS: BP 106/66; TEMP 97.9; O2SAT 98
[2023-12-27] MEDS: FAT EMULSION IV 250 ML IV ONE (20:36)
[2023-12-27] MEDS: AMINO AC/ELECTROLYTE/DEX/CALC 2,000 ML IV SCH (20:36)
[2023-12-28 07:16] LABS: HEMATOCRIT 27.3 % (36.0-47.0); HEMOGLOBIN 8.3 g/dl (12.0-15.5); MEAN CORPUSCULAR HEMOGLOBIN 25.4 pg (27.0-33.0); MEAN CORPUSCULAR HGB CONC 30.4 g/dl (32.0-36.5); MEAN CORPUSCULAR VOLUME 83.5 fl (80.0-96.0); PLATELET COUNT, AUTOMATED 358 10^3/uL (150-450); RED BLOOD COUNT 3.27 10^6/uL (4.00-5.40)
[2023-12-28 07:49] LABS: ALBUMIN 2.2 G/DL (3.2-5.2); ALKALINE PHOSPHATASE 210 U/L (46-116); ALT/SGPT 38 U/L (7.0-40); AST/SGOT 26 U/L (<34); BILIRUBIN,TOTAL < 0.2 MG/DL (0.3-1.2); BLOOD UREA NITROGEN 22 MG/DL (9-23); CALCIUM LEVEL 8.6 MG/DL (8.3-10.6); CARBON DIOXIDE LEVEL 18 MMOL/L (20-31); CHLORIDE LEVEL 108 MMOL/L (98-107); CREATININE FOR GFR 1.33 MG/DL (0.55-1.30); GLOMERULAR FILTRATION RATE 43.2 (>45); GLUCOSE, FASTING 96 MG/DL (74-106); MAGNESIUM LEVEL 1.6 MG/DL (1.8-2.4); PHOSPHORUS LEVEL 4.8 MG/DL (2.4-5.1); POTASSIUM SERUM 3.9 MMOL/L (3.5-5.1); SODIUM LEVEL 137 MMOL/L (136-145); TOTAL PROTEIN 6.4 G/DL (5.7-8.2)
[2023-12-28 08:21] LABS: ATYPICAL LYMPH 3 % (0-5); BASOPHILS 5 % (0-1); EOSINOPHILS 3 % (0-3); LYMPHOCYTES 19 % (16-44); MONOCYTES 7 % (0-5); NEUTROPHILS 62 % (28-66)
[2023-12-28 08:22] LABS: ANISOCYTOSIS 2+
[2023-12-28 08:23] LABS: HYPOCHROMASIA 2+
[2023-12-28 08:25] LABS: PLATELET ESTIMATE NORMAL (NORMAL)
[2023-12-28] MEDS: MAG SULF 1GM/100ML (MAG RUN) 1 GM in IV 1 EA IV SCH (10:48)
[2023-12-28 14:00] VITALS: BP 122/66; TEMP 97.5; O2SAT 98
[2023-12-28] MEDS: AMINO AC/ELECTROLYTE/DEX/CALC 2,000 ML IV SCH (17:40)
[2023-12-28] MEDS: FAT EMULSION IV 250 ML IV ONE (17:40)
[2023-12-28 19:38] VITALS: BP 123/69; TEMP 98.1; O2SAT 96
[2023-12-29 05:51] VITALS: BP 96/66; TEMP 98.1; O2SAT 98
[2023-12-29 06:26] LABS: BASO # 0.1 10^3/uL (0.0-0.2); BASO % 1.7 % (0.0-1.0); EOS # 0.3 10^3/uL (0.0-0.5); EOS % 5.2 % (0.0-3.0); HEMATOCRIT 25.8 % (36.0-47.0); LYMPH # 1.3 10^3/uL (1.5-5.0); LYMPH % 22.3 % (24.0-44.0); MEAN CORPUSCULAR HEMOGLOBIN 25.9 pg (27.0-33.0); MEAN CORPUSCULAR VOLUME 83.5 fl (80.0-96.0); MONO # 0.5 10^3/uL (0.0-0.8); MONO % 8.9 % (2.0-8.0); NEUTROPHILS # 3.6 10^3/uL (1.5-8.5); NEUTROPHILS % 61.4 % (36.0-66.0); PLATELET COUNT, AUTOMATED 315 10^3/uL (150-450); RED BLOOD COUNT 3.09 10^6/uL (4.00-5.40); WHITE BLOOD COUNT 5.8 10^3/uL (4.0-10.0)
[2023-12-29 06:48] LABS: ALBUMIN 2.2 G/DL (3.2-5.2); ALKALINE PHOSPHATASE 205 U/L (46-116); ALT/SGPT 35 U/L (7.0-40); AST/SGOT 25 U/L (<34); BILIRUBIN,TOTAL < 0.2 MG/DL (0.3-1.2); BLOOD UREA NITROGEN 23 MG/DL (9-23); CALCIUM LEVEL 8.5 MG/DL (8.3-10.6); CARBON DIOXIDE LEVEL 19 MMOL/L (20-31); CHLORIDE LEVEL 106 MMOL/L (98-107); CREATININE FOR GFR 1.16 MG/DL (0.55-1.30); GLOMERULAR FILTRATION RATE 50.6 (>45); GLUCOSE, FASTING 94 MG/DL (74-106); MAGNESIUM LEVEL 1.8 MG/DL (1.8-2.4); PHOSPHORUS LEVEL 5.1 MG/DL (2.4-5.1); POTASSIUM SERUM 3.7 MMOL/L (3.5-5.1); SODIUM LEVEL 136 MMOL/L (136-145); TOTAL PROTEIN 6.1 G/DL (5.7-8.2)
[2023-12-29 07:59] VITALS: BP 117/72
[2023-12-29] MEDS ORDERED: RISATAB3 PO (10:22)
[2023-12-29] MEDS ORDERED: META1POW PO (10:22)
[2023-12-29] MEDS ORDERED: SODI325T9 PO (10:22)
[2023-12-29] MEDS ORDERED: FLUC100T3 PO (10:22)
[2023-12-29 14:00] VITALS: BP 108/69; TEMP 97.9; O2SAT 98
[2023-12-29 16:34] VITALS: BP 106/86
[2024-01-04] MEDS ORDERED: FLUCONAZOLE 100 MG TAB PO SCH (09:00)
== END 2023-12-29 17:48 | disposition home health service (06) | DRG 721 ==
LOC: M ED INP 20:55 → M PCU 21:00 → M MSPAV 12-25 16:43
PROVIDERS: ADMIT Internal Medicine; ATTEND Internal Medicine
DX: T80.211A Bloodstream infection due to central venous catheter, initial encounter (principal); A41.89 Other specified sepsis; R65.21 Severe sepsis with septic shock; N17.9 Acute kidney failure, unspecified; E87.20 Acidosis, unspecified; I82.623 Acute embolism and thrombosis of deep veins of upper extremity, bilateral; K90.829 Short bowel syndrome, unspecified; I48.91 Unspecified atrial fibrillation; G40.909 Epilepsy, unspecified, not intractable, without status epilepticus; I82.C11 Acute embolism and thrombosis of right internal jugular vein; K86.89 Other specified diseases of pancreas; M46.27 Osteomyelitis of vertebra, lumbosacral region; Z79.01 Long term (current) use of anticoagulants; I25.10 Atherosclerotic heart disease of native coronary artery without angina pectoris; F32.A Depression, unspecified; Z87.891 Personal history of nicotine dependence; F12.90 Cannabis use, unspecified, uncomplicated; D64.9 Anemia, unspecified; M54.59 Other low back pain; Z79.899 Other long term (current) drug therapy; Z88.2 Allergy status to sulfonamides; K21.9 Gastro-esophageal reflux disease without esophagitis; I10 Essential (primary) hypertension; Y83.8 Other surgical procedures as the cause of abnormal reaction of the patient, or of later complication, without mention of misadventure at the time of the procedure

== ENCOUNTER → 2024-03-15 | Outpatient (CLI) | payer OTHER ==
[~2024-03-15] MED LIST changes: +CREO24CA PO; +DEBR6.5S4 AU; +FLUC100T3 PO; +GASTROGRAFIN SOLUTION 30ML As Ordered ONE; +ISOVUE-370 76% 100ML VIAL As Ordered ONE; +KEPP1TAB2 PO; +MAGN400T2 PO; +META1POW PO; +METO25TA4 PO; +ONDA-282 PO; -ONDA4TAB6 PO; +OXYC10TA12 PO; +PREG50CA PO; +RISATAB3 PO; +SODI325T9 PO; +SODI650T PO; +VITA100093 PO
== END ==
LOC: M RAD 14:31
PROVIDERS: ATTEND Internal Medicine Infectious Disease
DX: K86.3 Pseudocyst of pancreas (principal); M46.46 Discitis, unspecified, lumbar region
CPT/HCPCS: 74170; Q9963; Q9967

== ENCOUNTER 2024-04-21 13:17 | Inpatient (IN) | payer OTHER ==
[~2024-04-21] VITALS: Ht 160 cm; Wt 53.3 kg
[~2024-04-21 13:17] MED LIST changes: -GASTROGRAFIN SOLUTION 30ML As Ordered ONE; -ISOVUE-370 76% 100ML VIAL As Ordered ONE
[2024-04-21] MEDS: NS 1,000 ML IV ONE (16:58)
[2024-04-21] MEDS: MORPHINE 4 MG/ML 1ML VIAL IV ONE (16:59)
[2024-04-21] MEDS: ONDANSETRON 4MG 2ML VIAL IV ONE (16:59)
[2024-04-21 17:32] LABS: BASO # 0.1 10^3/uL (0.0-0.2); BASO % 0.5 % (0.0-1.0); EOS # 0.1 10^3/uL (0.0-0.5); EOS % 0.4 % (0.0-3.0); HEMATOCRIT 42.3 % (36.0-47.0); LYMPH # 2.1 10^3/uL (1.5-5.0); LYMPH % 11.7 % (24.0-44.0); MEAN CORPUSCULAR HEMOGLOBIN 29.5 pg (27.0-33.0); MEAN CORPUSCULAR HGB CONC 33.1 g/dl (32.0-36.5); MEAN CORPUSCULAR VOLUME 89.2 fl (80.0-96.0); MONO # 1.1 10^3/uL (0.0-0.8); MONO % 6.3 % (2.0-8.0); NEUTROPHILS # 14.3 10^3/uL (1.5-8.5); NEUTROPHILS % 80.6 % (36.0-66.0); PLATELET COUNT, AUTOMATED 303 10^3/uL (150-450); RED BLOOD COUNT 4.74 10^6/uL (4.00-5.40); WHITE BLOOD COUNT 17.8 10^3/uL (4.0-10.0)
[2024-04-21 17:42] LABS: INR 1.14; PARTIAL THROMBOPLASTIN TIME 35.5 SECONDS (24.8-34.2); PROTHROMBIN TIME 14.3 SECONDS (12.5-14.5)
[2024-04-21 17:50] LABS: LIPASE 20 U/L (12-53)
[2024-04-21 17:53] LABS: ALBUMIN 3.1 G/DL (3.2-5.2); ALKALINE PHOSPHATASE 186 U/L (46-116); ALT/SGPT 68 U/L (7.0-40); AST/SGOT 33 U/L (<34); BILIRUBIN,DIRECT 0.4 MG/DL (<0.4); BLOOD UREA NITROGEN 17 MG/DL (9-23); CALCIUM LEVEL 9.1 MG/DL (8.3-10.6); CARBON DIOXIDE LEVEL 25 MMOL/L (20-31); CHLORIDE LEVEL 105 MMOL/L (98-107); CREATININE FOR GFR 0.69 MG/DL (0.55-1.30); GLOMERULAR FILTRATION RATE > 60.0 (>45); GLUCOSE, FASTING 90 MG/DL (74-106); POTASSIUM SERUM 3.1 MMOL/L (3.5-5.1); SODIUM LEVEL 138 MMOL/L (136-145)
[2024-04-21] MEDS ORDERED: ISOVUE-370 76% 100ML VIAL As Ordered ONE (18:00)
[2024-04-21 18:16] LABS: MAGNESIUM LEVEL 1.8 MG/DL (1.8-2.4)
[2024-04-21] MEDS: PIPERACILLIN/TAZOBACTAM SOD 3.375 GM in D5W MINI-BAG PLUS 50 ML IV ONE (19:13)
[2024-04-21] MEDS: KCL 10MEQ/100ML SWI (KRUN) 10 MEQ in IV 1 EA IV ONE (19:48)
[2024-04-21] MEDS ORDERED: HYDR-4517 PO (20:33)
[2024-04-21] MEDS ORDERED: FLUC200T4 PO (20:33)
[2024-04-21] MEDS ORDERED: DIPH1TAB80 PO (20:33)
[2024-04-21] MEDS ORDERED: CREO3600 PO (20:33)
[2024-04-21] MEDS ORDERED: HOME MED LIST COMPLETE! XX SCH (20:35)
[2024-04-21] MEDS ORDERED: HYDROMORPHONE HCL 0.5 MG/ 0.5 ML SYRINGE IV PRN (20:40)
[2024-04-21] MEDS ORDERED: KCL 40MEQ IN D5/NS 1000ML 1,000 ML IV SCH (20:40)
[2024-04-21] MEDS ORDERED: ONDANSETRON 4MG 2ML VIAL IV PRN (20:40)
[2024-04-21] MEDS: HYDROMORPHONE HCL 0.5 MG/ 0.5 ML SYRINGE IV PRN (21:40)
[2024-04-21] MEDS: KCL 40MEQ IN D5/NS 1000ML 1,000 ML IV SCH (21:59)
[2024-04-21 23:52] VITALS: BP 140/72; TEMP 97; O2SAT 96
[2024-04-22] MEDS: PIPERACILLIN/TAZOBACTAM SOD 3.375 GM in D5W MINI-BAG PLUS 50 ML IV SCH (01:04)
[2024-04-22 04:28] VITALS: BP 99/54; TEMP 97.4; O2SAT 94
[2024-04-22 06:39] LABS: HEMATOCRIT 37.3 % (36.0-47.0); HEMOGLOBIN 12.1 g/dl (12.0-15.5); MEAN CORPUSCULAR HEMOGLOBIN 29.7 pg (27.0-33.0); MEAN CORPUSCULAR HGB CONC 32.4 g/dl (32.0-36.5); MEAN CORPUSCULAR VOLUME 91.4 fl (80.0-96.0); PLATELET COUNT, AUTOMATED 251 10^3/uL (150-450); RED BLOOD COUNT 4.08 10^6/uL (4.00-5.40); WHITE BLOOD COUNT 9.2 10^3/uL (4.0-10.0)
[2024-04-22 06:53] LABS: PROCALCITONIN 0.12 ng/ml
[2024-04-22 07:02] LABS: ALBUMIN 2.4 G/DL (3.2-5.2); ALKALINE PHOSPHATASE 153 U/L (46-116); ALT/SGPT 69 U/L (7.0-40); AST/SGOT 46 U/L (<34); BILIRUBIN,TOTAL 0.9 MG/DL (0.3-1.2); BLOOD UREA NITROGEN 10 MG/DL (9-23); CALCIUM LEVEL 8.5 MG/DL (8.3-10.6); CARBON DIOXIDE LEVEL 24 MMOL/L (20-31); CHLORIDE LEVEL 114 MMOL/L (98-107); CREATININE FOR GFR 0.82 MG/DL (0.55-1.30); GLOMERULAR FILTRATION RATE > 60.0 (>45); GLUCOSE, FASTING 104 MG/DL (74-106); MAGNESIUM LEVEL 1.7 MG/DL (1.8-2.4); POTASSIUM SERUM 3.8 MMOL/L (3.5-5.1); SODIUM LEVEL 142 MMOL/L (136-145); TOTAL PROTEIN 5.5 G/DL (5.7-8.2)
[2024-04-22 08:16] VITALS: BP 105/63; TEMP 97.7; O2SAT 92
[2024-04-22] MEDS: MAG SULF 1GM/100ML (MAG RUN) 1 GM in IV 1 EA IV ONE (08:28)
[2024-04-22] MEDS: ENOXAPARIN 40MG/0.4ML SYRINGE (J1650 PER 10MG) SC SCH (08:28)
[2024-04-22 11:31] VITALS: BP 111/74; TEMP 98; O2SAT 95
[2024-04-22] MEDS ORDERED: MORPHINE 4 MG/ML 1ML VIAL IV PRN (15:35)
[2024-04-22] MEDS ORDERED: LOMOTIL 2.5MG/0.025MG TABLET PO PRN (15:50)
[2024-04-22 15:54] VITALS: BP 125/72; TEMP 98.8; O2SAT 97
[2024-04-22] MEDS: INSULIN LISPRO (NovoLOG) PER UNIT SC SCH (18:00)
[2024-04-22] MEDS: CREON-24 CAPSULE (PANCRELIPASE) PO SCH (18:42)
[2024-04-22] MEDS: FLUCONAZOLE 100 MG TAB PO SCH (18:42)
[2024-04-22] MEDS: CREON-12 CAPSULE (PANCRELIPASE) PO SCH (18:42)
[2024-04-22] MEDS: FAT EMULSION IV 250 ML IV ONE (18:44)
[2024-04-22] MEDS: AMINO AC/ELECTROLYTE/DEX/CALC 2,000 ML IV SCH (18:44)
[2024-04-22] MEDS: MORPHINE 2 MG/ML 1ML VIAL IV PRN (20:19)
[2024-04-22] MEDS: MIRTAZAPINE 7.5MG PER 1/2 TABLET PO SCH (20:20)
[2024-04-22] MEDS: levETIRAcetam 250MG TABLET (KEPPRA) PO SCH (20:20)
[2024-04-22 20:44] VITALS: BP 132/72; TEMP 98.1; O2SAT 96
[2024-04-22 23:37] VITALS: BP 138/64; TEMP 97.4; O2SAT 94
[2024-04-23 04:09] VITALS: BP 126/65; TEMP 97.5; O2SAT 95
[2024-04-23 07:46] VITALS: BP 129/76; TEMP 98; O2SAT 96
[2024-04-23] MEDS ORDERED: PROB250C PO (10:57)
[2024-04-23] MEDS ORDERED: METR-265 PO (10:57)
[2024-04-23] MEDS ORDERED: CIPR250T3 PO (10:57)
[2024-04-23] MEDS: SODIUM CHLORIDE 0.9% INJ 10 ML SYR IV PRN (12:27)
[2024-04-23] MEDS ORDERED: SODIUM CHLORIDE 0.9% INJ 10 ML SYR IV SCH (18:00)
== END 2024-04-23 12:41 | disposition home or self-care (01) | DRG 249 ==
LOC: M ED 13:17 → M ED INP 20:36 → M PCU 23:26
PROVIDERS: ADMIT Preventive Medicine Undersea and Hyperbaric Medicine; ATTEND Internal Medicine
DX: K52.9 Noninfective gastroenteritis and colitis, unspecified (principal); K90.829 Short bowel syndrome, unspecified; E83.42 Hypomagnesemia; I48.91 Unspecified atrial fibrillation; K86.89 Other specified diseases of pancreas; G40.909 Epilepsy, unspecified, not intractable, without status epilepticus; E87.6 Hypokalemia; I25.10 Atherosclerotic heart disease of native coronary artery without angina pectoris; M54.59 Other low back pain; Z88.2 Allergy status to sulfonamides; Z88.8 Allergy status to other drugs, medicaments and biological substances; Z79.899 Other long term (current) drug therapy; D64.9 Anemia, unspecified

== ENCOUNTER 2024-05-25 13:17 | Emergency (ER) | payer MEDICAID, OTHER ==
[~2024-05-25] VITALS: Ht 160 cm; Wt 51.8 kg
[~2024-05-25 13:17] MED LIST changes: +CIPR250T3 PO; +DIPH1TAB80 PO; +FLUC200T4 PO; +HYDR-4517 PO; +METR-265 PO; +PROB250C PO
[2024-05-25 13:57] LABS: BASO # 0.1 10^3/uL (0.0-0.2); BASO % 0.8 % (0.0-1.0); EOS % 0.4 % (0.0-3.0); HEMATOCRIT 40.4 % (36.0-47.0); HEMOGLOBIN 13.6 g/dl (12.0-15.5); LYMPH # 1.4 10^3/uL (1.5-5.0); LYMPH % 14.4 % (24.0-44.0); MEAN CORPUSCULAR HEMOGLOBIN 31.2 pg (27.0-33.0); MEAN CORPUSCULAR HGB CONC 33.7 g/dl (32.0-36.5); MEAN CORPUSCULAR VOLUME 92.7 fl (80.0-96.0); MONO # 0.5 10^3/uL (0.0-0.8); MONO % 4.8 % (2.0-8.0); NEUTROPHILS # 7.6 10^3/uL (1.5-8.5); NEUTROPHILS % 79.1 % (36.0-66.0); PLATELET COUNT, AUTOMATED 313 10^3/uL (150-450); RED BLOOD COUNT 4.36 10^6/uL (4.00-5.40); WHITE BLOOD COUNT 9.7 10^3/uL (4.0-10.0)
[2024-05-25] MEDS ORDERED: SODIUM CHLORIDE 0.9% INJ 10 ML SYR IV PRN (14:15)
[2024-05-25 14:41] LABS: CK-MB VALUE MASS < 1.0 NG/ML (<3.6)
[2024-05-25 15:39] LABS: LIPASE 30 U/L (12-53)
[2024-05-25 15:41] LABS: ALBUMIN 3.3 G/DL (3.2-5.2); ALKALINE PHOSPHATASE 140 U/L (46-116); ALT/SGPT 28 U/L (7.0-40); AST/SGOT 19 U/L (<34); BILIRUBIN,DIRECT 0.3 MG/DL (<0.4); BLOOD UREA NITROGEN 20 MG/DL (9-23); CALCIUM LEVEL 9.7 MG/DL (8.3-10.6); CARBON DIOXIDE LEVEL 19 MMOL/L (20-31); CHLORIDE LEVEL 113 MMOL/L (98-107); CPK CREATINE PHOSPHOKINASE 22 U/L (34-145); CREATININE FOR GFR 0.71 MG/DL (0.55-1.30); GLOMERULAR FILTRATION RATE > 60.0 (>45); GLUCOSE, FASTING 106 MG/DL (74-106); MB/CK RELATIVE INDEX 4.54 (< OR =4); POTASSIUM SERUM 3.3 MMOL/L (3.5-5.1); SODIUM LEVEL 141 MMOL/L (136-145); TOTAL PROTEIN 7.2 G/DL (5.7-8.2)
[2024-05-25 15:47] LABS: CK-MB VALUE MASS < 1.0 NG/ML (<3.6)
[2024-05-25 15:53] LABS: CPK CREATINE PHOSPHOKINASE 20 U/L (34-145)
[2024-05-25] MEDS ORDERED: ISOVUE-370 76% 100ML VIAL As Ordered ONE (16:16)
[2024-05-25] MEDS: MORPHINE 4 MG/ML 1ML VIAL IV PRN (16:42)
[2024-05-25] MEDS ORDERED: PROBCAP14 PO (18:35)
[2024-05-25] MEDS ORDERED: HOME MED LIST COMPLETE! XX SCH (18:35)
[2024-05-25] MEDS: MAALOX 30 ML SUSP *UDC PO ONE (19:13)
[2024-05-25] MEDS: LIDOCAINE VISCOUS 2% SOLN 15ML UDC MT ONE (19:13)
[2024-05-25] MEDS: SUCRALFATE SUSP 1GM/10ML UD PO ONE (19:14)
[2024-05-25] MEDS: SODIUM CHLORIDE 0.9% INJ 10 ML SYR IV SCH (20:31)
[2024-05-26] MEDS ORDERED: MORPHINE 2 MG/ML 1ML VIAL IV PRN (01:40)
[2024-05-26] MEDS: MORPHINE 4 MG/ML 1ML VIAL IV PRN (02:03)
[2024-05-26] MEDS: KCL 10MEQ/100ML SWI (KRUN) 10 MEQ in IV 1 EA IV SCH (02:04)
[2024-05-26 07:21] LABS: BLOOD UREA NITROGEN 12 MG/DL (9-23); CALCIUM LEVEL 9.7 MG/DL (8.3-10.6); CARBON DIOXIDE LEVEL 22 MMOL/L (20-31); CHLORIDE LEVEL 113 MMOL/L (98-107); CREATININE FOR GFR 0.66 MG/DL (0.55-1.30); GLOMERULAR FILTRATION RATE > 60.0 (>45); GLUCOSE, FASTING 122 MG/DL (74-106); POTASSIUM SERUM 3.6 MMOL/L (3.5-5.1); SODIUM LEVEL 142 MMOL/L (136-145)
[2024-05-26 07:56] VITALS: BP 127/82; TEMP 98.2; O2SAT 93
[2024-05-26] MEDS ORDERED: levETIRAcetam 250MG TABLET (KEPPRA) PO SCH (09:00)
== END 2024-05-26 07:56 | disposition short-term general hospital (02) ==
LOC: M ED 13:17
DX: K86.3 Pseudocyst of pancreas (principal); R10.9 Unspecified abdominal pain; I45.81 Long QT syndrome; K57.90 Diverticulosis of intestine, part unspecified, without perforation or abscess without bleeding; E55.9 Vitamin D deficiency, unspecified; I73.9 Peripheral vascular disease, unspecified; Z88.1 Allergy status to other antibiotic agents; Z79.01 Long term (current) use of anticoagulants; Z86.79 Personal history of other diseases of the circulatory system; Z79.899 Other long term (current) drug therapy
CPT/HCPCS: 71045; 71275; 74174; 80048; 80076; 82550; 82553; 83605; 83690; 84484; 85025; 93005; 93041; 94760; 96365; 96366; 96375; 96376; 99285; J1642; Q9967

== ENCOUNTER → 2024-07-15 | Outpatient (CLI) | payer OTHER ==
[~2024-07-15] MED LIST changes: +FLUC-1 PO; -FLUC200T4 PO; +LIDOCAINE 1% MDV 20ML VIAL As Ordered ONE; +MIDAZOLAM INJ 2MG/2ML VIAL As Ordered ONE; +NS 1,000 ML IV SCH; +PROBCAP14 PO; +fentaNYL 100 MCG/2 ML INJECTION As Ordered ONE
[2024-07-15 12:38] VITALS: TEMP 97.6
[2024-07-15] MEDS: VANCOMYCIN/WATER FOR INJ 1,000 MG in IV 1 EA IV ONE (13:18)
[2024-07-15 15:00] VITALS: BP 111/72; O2SAT 96
== END ==
LOC: M IRPRO 12:02
PROVIDERS: ATTEND Internal Medicine Infectious Disease
DX: K55.9 Vascular disorder of intestine, unspecified (principal); K90.829 Short bowel syndrome, unspecified
CPT/HCPCS: 36561; 99152; 99153; C1894; J1642; J2250; J3010; J3372

== ENCOUNTER → 2024-07-29 | Outpatient (CLI) | payer OTHER ==
[~2024-07-29] MED LIST changes: -LIDOCAINE 1% MDV 20ML VIAL As Ordered ONE; -MIDAZOLAM INJ 2MG/2ML VIAL As Ordered ONE; -NS 1,000 ML IV SCH; +PROHANCE 279.3MG/ML 5ML VIAL As Ordered ONE; -fentaNYL 100 MCG/2 ML INJECTION As Ordered ONE
== END ==
LOC: M RAD 13:58
PROVIDERS: ATTEND Physician Assistant
DX: H90.3 Sensorineural hearing loss, bilateral (principal)
CPT/HCPCS: 70553; A9576

== ENCOUNTER 2024-08-02 11:56 | Emergency (ER) | payer OTHER ==
[~2024-08-02] VITALS: Ht 160 cm; Wt 50.0 kg
[~2024-08-02 11:56] MED LIST changes: -PROHANCE 279.3MG/ML 5ML VIAL As Ordered ONE
[2024-08-02 17:08] LABS: BASO # 0.1 10^3/uL (0.0-0.2); BASO % 0.7 % (0.0-1.0); EOS % 0.3 % (0.0-3.0); HEMATOCRIT 37.9 % (36.0-47.0); HEMOGLOBIN 12.9 g/dl (12.0-15.5); LYMPH # 1.8 10^3/uL (1.5-5.0); LYMPH % 20.9 % (24.0-44.0); MEAN CORPUSCULAR HEMOGLOBIN 32.7 pg (27.0-33.0); MEAN CORPUSCULAR VOLUME 95.9 fl (80.0-96.0); MONO # 0.5 10^3/uL (0.0-0.8); MONO % 5.5 % (2.0-8.0); NEUTROPHILS # 6.2 10^3/uL (1.5-8.5); NEUTROPHILS % 72.1 % (36.0-66.0); PLATELET COUNT, AUTOMATED 324 10^3/uL (150-450); RED BLOOD COUNT 3.95 10^6/uL (4.00-5.40); WHITE BLOOD COUNT 8.6 10^3/uL (4.0-10.0)
[2024-08-02] MEDS ORDERED: ISOVUE-370 76% 100ML VIAL As Ordered ONE (17:11)
[2024-08-02] MEDS: METOCLOPRAMIDE INJ 10MG/2ML VIAL IV ONE (17:19)
[2024-08-02] MEDS: MORPHINE 4 MG/ML 1ML VIAL IV ONE (17:19)
[2024-08-02 17:28] LABS: ALBUMIN 2.9 G/DL (3.2-5.2); BILIRUBIN,DIRECT 0.2 MG/DL (<0.4); BILIRUBIN,TOTAL 0.6 MG/DL (0.3-1.2); TOTAL PROTEIN 6.9 G/DL (5.7-8.2)
[2024-08-02] MEDS: HYDROMORPHONE HCL 0.5 MG/ 0.5 ML SYRINGE IV PRN (20:24)
[2024-08-02] MEDS: SODIUM CHLORIDE 0.9% INJ 10 ML SYR IV SCH (21:02)
[2024-08-02 21:08] VITALS: BP 131/71; TEMP 96.7; O2SAT 95
== END 2024-08-02 21:09 | disposition home or self-care (01) ==
LOC: M ED 11:56
DX: K86.3 Pseudocyst of pancreas (principal); R10.9 Unspecified abdominal pain; Z87.891 Personal history of nicotine dependence; Z88.2 Allergy status to sulfonamides; Z88.8 Allergy status to other drugs, medicaments and biological substances; Z79.899 Other long term (current) drug therapy
CPT/HCPCS: 74177; 80047; 80076; 83690; 85025; 87507; 96374; 96375; 99283; J1171; J1642; J2765; Q9967

== ENCOUNTER 2024-08-14 12:55 | Emergency (ER) | payer OTHER ==
[~2024-08-14] VITALS: Ht 160 cm; Wt 50.6 kg
[2024-08-14] MEDS ORDERED: LAMO25TA4 (13:13)
[2024-08-14 16:18] LABS: KETONE, URINE AUTO RFX NEGATIVE (NEGATIVE); LEUKOCYTE ESTERASE UR AUTO RFX TRACE (NEGATIVE); MUCUS, URINE RFX SMALL (NEGATIVE); NITRITE, URINE AUTO RFX NEGATIVE (NEGATIVE); RBC, URINE AUTO RFX 2 /HPF (0-3); SQUAM EPITHELIAL CELL UR AURFX 6 /HPF (0-6); WBC, URINE AUTO RFX 4 /HPF (0-3)
[2024-08-14 17:22] VITALS: TEMP 98.8
[2024-08-14] MEDS: SODIUM CHLORIDE 0.9% INJ 10 ML SYR IV PRN (18:16)
[2024-08-14 18:34] LABS: BASO % 0.4 % (0.0-1.0); EOS % 0.2 % (0.0-3.0); HEMATOCRIT 38.6 % (36.0-47.0); HEMOGLOBIN 13.1 g/dl (12.0-15.5); LYMPH # 1.3 10^3/uL (1.5-5.0); LYMPH % 12.2 % (24.0-44.0); MEAN CORPUSCULAR HEMOGLOBIN 32.1 pg (27.0-33.0); MEAN CORPUSCULAR HGB CONC 33.9 g/dl (32.0-36.5); MEAN CORPUSCULAR VOLUME 94.6 fl (80.0-96.0); MONO # 0.7 10^3/uL (0.0-0.8); MONO % 6.9 % (2.0-8.0); NEUTROPHILS # 8.4 10^3/uL (1.5-8.5); NEUTROPHILS % 79.8 % (36.0-66.0); PLATELET COUNT, AUTOMATED 344 10^3/uL (150-450); RED BLOOD COUNT 4.08 10^6/uL (4.00-5.40); WHITE BLOOD COUNT 10.5 10^3/uL (4.0-10.0)
[2024-08-14] MEDS ORDERED: ISOVUE-370 76% 100ML VIAL As Ordered ONE (18:38)
[2024-08-14 19:00] LABS: LIPASE 58 U/L (12-53)
[2024-08-14 19:02] LABS: ALKALINE PHOSPHATASE 169 U/L (35-104); ALT/SGPT 35 U/L (7.0-40); AST/SGOT 20 U/L (<34); BILIRUBIN,DIRECT 0.2 MG/DL (<0.4); BILIRUBIN,TOTAL 0.7 MG/DL (0.3-1.2); BLOOD UREA NITROGEN 13 MG/DL (9-23); CALCIUM LEVEL 8.7 MG/DL (8.3-10.6); CARBON DIOXIDE LEVEL 27 MMOL/L (20-31); CHLORIDE LEVEL 103 MMOL/L (98-107); CREATININE FOR GFR 0.57 MG/DL (0.55-1.30); GLOMERULAR FILTRATION RATE > 60.0 (>45); GLUCOSE, FASTING 89 MG/DL (74-106); POTASSIUM SERUM 3.6 MMOL/L (3.5-5.1); SODIUM LEVEL 139 MMOL/L (136-145); TOTAL PROTEIN 6.9 G/DL (5.7-8.2)
[2024-08-14] MEDS: HYDROMORPHONE HCL 0.5 MG/ 0.5 ML SYRINGE IV ONE (20:43)
[2024-08-14 21:09] VITALS: BP 137/91; O2SAT 95
[2024-08-15] MEDS ORDERED: SODIUM CHLORIDE 0.9% INJ 10 ML SYR IV SCH (09:00)
== END 2024-08-14 21:12 | disposition home or self-care (01) ==
LOC: M ED 12:55
DX: R10.84 Generalized abdominal pain (principal); K86.2 Cyst of pancreas; K57.30 Diverticulosis of large intestine without perforation or abscess without bleeding; Z90.89 Acquired absence of other organs; Z88.2 Allergy status to sulfonamides; Z88.8 Allergy status to other drugs, medicaments and biological substances; Z79.899 Other long term (current) drug therapy
CPT/HCPCS: 74177; 80047; 80053; 81001; 82248; 83690; 85025; 87088; 87186; 96374; 96375; 99283; J1171; J1642; Q9967

== ENCOUNTER → 2025-07-12 | Outpatient (CLI) | payer OTHER ==
[~2025-07-12] VITALS: Ht 160 cm; Wt 44.7 kg
[~2025-07-12] MED LIST changes: +ASPI81CH33 PO; +CRES1CAP2 PO; +FENT12DI12 TOP; +LAMO-18 PO; +LIDO30CR18 TOP; +OXYC-517 PO; +PARO5TAB PO; +POLY17PO18 PO; -PREG50CA PO; +PREG50CA87 PO; +XARE1TAB PO; +[UNRECOGNIZED DRUG - CODE] PO
[2025-07-12 14:58] VITALS: BP 104/60; O2SAT 98
== END ==
LOC: M PAL 14:33
PROVIDERS: ATTEND Physician Assistant
DX: Z51.5 Encounter for palliative care (principal); Z66 Do not resuscitate; K90.829 Short bowel syndrome, unspecified; R54 Age-related physical debility; I73.9 Peripheral vascular disease, unspecified; Z89.611 Acquired absence of right leg above knee; I25.10 Atherosclerotic heart disease of native coronary artery without angina pectoris; M46.40 Discitis, unspecified, site unspecified; I48.91 Unspecified atrial fibrillation; Z88.2 Allergy status to sulfonamides; Z88.6 Allergy status to analgesic agent; Z79.82 Long term (current) use of aspirin

== ENCOUNTER → 2025-07-25 | Outpatient (CLI) | payer OTHER ==
[~2025-07-25] MED LIST changes: +MORP30TASA PO; +OXYC20TA40 PO
== END ==
LOC: M PAL 14:15
PROVIDERS: ATTEND Physician Assistant
DX: Z51.5 Encounter for palliative care (principal); Z66 Do not resuscitate; R54 Age-related physical debility; K90.829 Short bowel syndrome, unspecified; I73.9 Peripheral vascular disease, unspecified; Z89.611 Acquired absence of right leg above knee; Z79.891 Long term (current) use of opiate analgesic; Z88.2 Allergy status to sulfonamides; Z88.6 Allergy status to analgesic agent; Z79.82 Long term (current) use of aspirin; Z79.899 Other long term (current) drug therapy